=== PATIENT | female | born 1940 | race Caucasian/White ===

== ENCOUNTER → 2016-09-15 | Day surgery (SDC) | payer MEDICARE, OTHER ==
[~2016-09-15] VITALS: Ht 172.7 cm; Wt 82.5 kg
[~2016-09-15] MED LIST: ADVIL PM CAPLE1 EACH PO; ALEVE220 MG PO; ASPIRIN325 MG PO; CALCIUM CARBON600 MG PO; CENTRUM SILVER1 TAB PO; COLACE100 MG PO; DITROPAN XL10 MG PO; EFFIENT10 MG PO; LIPITOR80 MG PO; LOPRESSOR25 MG PO; NITROSTAT0.4 MG SL; NORVASC10 MG PO; PLAVIX75 MG; POTASSIUM CHLORIDE; RANEXA ER500 MG PO; TOPROL XL25 MG PO; TYLENOL PM EX-1 EACH PO; TYLENOL325 MG PO; VASOTEC5 MG PO
== END | disposition disaster alternative care site (69) ==
LOC: GPOC 09-06 15:00 → GEND 07:52 → GSDC 15:00
PROC: 0DB68ZX Excision of Stomach, Via Natural or Artificial Opening Endoscopic, Diagnostic (ICD-10-PCS; principal; 2016-09-15)
DX: K29.50 Unspecified chronic gastritis without bleeding (principal); I10 Essential (primary) hypertension; Z88.2 Allergy status to sulfonamides; Z88.8 Allergy status to other drugs, medicaments and biological substances
CPT/HCPCS: J2001; J7030